=== PATIENT | female | born 1980 | race Caucasian/White ===

== ENCOUNTER 2016-08-19 12:26 | Emergency (ER) | payer BC ==
[2016-08-19 12:34] VITALS: BP 123/67
--- NOTE | 2016-08-19 13:07 | ERNOTE ---
Lower Extremity HPI - Narrative Date of Service: 08/19/16 - General Lower Extremities Pain: ankle: right Time Seen by Provider: 08/19/16 12:49 Source: patient Exam Limitations: no limitations - Immun/Allergies/Home Medications Immunizations: IMMUNIZATION HX Immunizations Up to Date Yes Allergies/Adverse Reactions: Allergies Allergy/AdvReac Type Severity Reaction Status Date / Time dicloxacillin Allergy Hives Verified 08/19/16 12:34 Home Medications: HOME MEDICATIONS Probiotic 07/31/16 [Last Taken Unknown] Vitamin C 07/31/16 [Last Taken Unknown] Zyrtec 10 mg PO DAILY 07/31/16 [Last Taken Unknown] - History of Present Illness Narrative: This 35-year-old female presenting to the emergency room after a trip on stairs outside her home. She was walking and carrying something and tripped over a stair. She noticed swelling, applied ice took 800 mg of ibuprofen and came to the emergency room. She states that pain is under control with over-the- counter pain medicine. But is concerned about the swelling to the right lateral aspect of her foot. Date (Duration): 08/19/16 Occurred: just prior to arrival Location of Incident: home Method of Injury: Reports: fell Reason for Fall: Reports: lost balance Loss of Consciousness: Reports: no loss of consciousness Modifying Factors - (Improves): Reports: cold therapy Modifying Factors - (Worsens): Reports: movement Associated Symptoms: Reports: weakness. Denies: snapping, popping sensation, sensory loss Other Injuries: Reports: none Subsequent Symptoms: Denies: sensory loss, numbness Review of Systems - Review of Systems Constitutional: Present: no symptoms reported EYE: Present: no symptoms reported ENT: Present: no symptoms reported Respiratory: Present: no symptoms reported Cardiology: Present: no symptoms reported Gastrointestinal/Abdominal: Present: no symptoms reported Genitourinary: Present: no symptoms reported Musculoskeletal: Present: See HPI, joint pain, joint swelling. Absent: back pain, neck pain Skin: Present: See HPI Neurological: Present: no symptoms reported. Absent: numbness, tingling Hematologic/Lymphatic: Present: no symptoms reported Psych: Present: no symptoms reported All Other Systems: All systems neg except as marked - Patient's Past Medical History Patient History - Medical: No pertinent hx Patient History - Cardiac/Respiratory: No pertinent hx Patient History - Cancer: No Hx of Cancer Patient History - Surgical Procedures: Cholecystectomy Patient History - Other: None - Social History Living Situations: home Psych History: No pertinent hx Alcohol Use: none Drug Use: none - Immunizations Immunizations Up to Date: Yes Physical Exam - Physical Exam General Appearance: Present: wd/wn, alert, no apparent distress Ears, Nose, Throat: Present: normal ENT inspection Neck: Present: normal inspection Respiratory: Present: no respiratory distress Cardiovascular/Chest: Present: regular rate, rhythm, no murmur Peripheral Pulses: N=norm/S=strong/W=weak/B=bound/A=absent: Radial (R): Normal, Radial (L): Normal, Dorsalis-pedis (R): Normal, Dorsalis-pedis (L): Normal Gastrointestinal/Abdominal: Present: normal bowel sounds Back Exam: Present: normal inspection Extremity Exam: Present: decreased range of motion, joint swelling - right lateral aspect of foot has a swollen area. tender to palpation. Neurological Exam: Present: alert, oriented, normal mood/affect Skin Exam: Present: normal color Lymphatic Exam: Present: no adenopathy ED Progress - Vital Signs Patient's Vital Signs:: I have reviewed the patient's vital signs. Vital Signs: Vital Signs 08/19/16 12:29 Temperature 36.4 C L Pulse Rate 69 Respiratory 12 Rate Blood Pressure 123/67 O2 Sat by Pulse 100 Oximetry - EKG EKG read: Reviewed by me - X-Ray X-Ray #1 X-Ray: ankle Interpretation: Interp. by me - dr mayuri bishop, Reviewed by me X-ray Comments: No acute fracture observed. ER attending agrees with these findings. Small calcification was observed under the navicular bone. - Progress/Reassessment Chief Complaint: Ankle Injury/ Pain Progress:: Improved Departure Clinical Impression: Right ankle sprain Qualifiers: Encounter type: initial encounter Involved ligament of ankle: unspecified ligament Qualified Code(s): S93.401A - Sprain of unspecified ligament of right ankle, initial encounter - Departure Disposition: Home self-care Condition: Stable Instructions: RICE for Routine Care of Injuries, Banq-[id number], Ankle Pain, Ankle Sprain Additional Instructions: Continue any current home medications. Continue to take [id number] anti- inflammatories as directed. Rest right ankle. Return to emergency Department if pain is unable to be controlled by [id number] pain medications or if swelling increases, unable to bear weight, numbness, tingling or decreased sensation to that foot. Wear air cast for the next few days, and follow up with your primary care pain persists. Referrals: Sae Massey MD [Primary Care Provider] -
--- OUTSIDE RECORDS SUMMARY | 2016-08-19 13:31 | XMS REPORT | Continuity of Care Document ---
:1980 Author Organization [facility] ([facility]) Address [address] [place] [address] Phone [phone] Care Team Providers Name Role Phone Sae Massey Primary Care Provider [phone] Source Comments This disclosure is being made pursuant to the Care Everywhere program, applicable federal and state laws, and may not contain all informaitonavailable regarding this patient.[facility] ([facility]) Active Allergies and Adverse Reactions Allergen Noted Date Severity Reactions Comments Dicloxacillin 08/18/2013 Pruritus,Rash Current Medications Prescription Sig. Disp. Refills Start Date End Date Status PHENYL-FREE 2HP Take 160 g by mouth 4800 g 11 09/21/2010 Active 40-390 gram-kcal daily. Indications: Powd Phenylketonuria cetirizine 10 mg Take 10 mg by mouth Active tablet daily. ascorbic acid Take 1,000 mg by mouth Active (VITAMIN C) 1,000 mg 2 times daily. 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/2004 Currently Estimated Date of Delivery Comments Yes Resolved Problems Problem Noted Date Resolved Date Unspecified complication of , antepartum 07/13/2008 09/23/2012 Female infertility of unspecified origin 08/11/2007 09/23/2012 Social History Tobacco Use Types Packs/Day Years Used Date Never Smoker Smokeless Tobacco: Never Used Tobacco Cessation:Counseling Given: Yes Comments: Alcohol Use Drinks/Week oz/Week Comments No Last Filed Vital Signs Vital Sign Reading Time Taken Blood Pressure 108/69 01/24/2016 10:15 AM CDT Pulse 58 01/24/2016 10:15 AM CDT Temperature 36.7 C (98.1 F) 01/24/2016 10:15 AM CDT Respiratory Rate 18 01/24/2016 10:15 AM CDT Height 1.665 m (5' 5.55") 01/24/2016 10:15 AM CDT Weight 55.3 kg (121 lb 14.6 oz) 01/24/2016 10:15 AM CDT Body Mass Index 19.95 01/24/2016 10:15 AM CDT Oxygen Saturation - - Plan of Care Health Maintenance Due Date Last Done Comments Hepatitis B Vaccine (1 of 3 1978 - Primary Series) Lipid Disorder Screening 1996 MMR Vaccine 1996 Td Vaccine 1996 Cervical Cancer Screening 2008 Influenza Vaccine: Seasonal 12/26/2015 (#1) Tdap Vaccine Addressed 03/08/2014 Overridden with the (Previously intention of not completed) completing the topic Results from Last 3 Months Not on file
== END 2016-08-19 14:25 | disposition home or self-care (01) ==
LOC: ER 12:26
PROC: 2W3SX1Z Immobilization of Right Foot using Splint (ICD-10-PCS; principal; 2016-08-19)
DX: S93.401A Sprain of unspecified ligament of right ankle, initial encounter (principal); W10.2XXA Fall (on)(from) incline, initial encounter; Y93.89 Activity, other specified; Y92.008 Other place in unspecified non-institutional (private) residence as the place of occurrence of the external cause; Y99.9 Unspecified external cause status